=== PATIENT | female | born 1965 | race Caucasian/White ===

== ENCOUNTER 2017-12-27 13:33 | Day surgery (SDC) | payer BC ==
[2017-12-27] MEDS ORDERED: PROPOFOL 10 MG/ML VIAL IV ONE (13:34)
[2017-12-27] MEDS ORDERED: LIDOCAINE 2% MDV (20MG/ML) 20ML VIAL IV ONE (13:34)
--- NOTE | 2018-01-02 10:01 | Operative Note ---
DATE OF SURGERY: OPERATION: ESOPHAGOGASTRODUODENOSCOPY with biopsy. PREOPERATIVE DIAGNOSIS: Non-cardiac chest pain. POSTOPERATIVE DIAGNOSIS: GE junction erosion. PROCEDURE: After informed consent was obtained from the patient, she was placed in the left lateral decubitus position in the endoscopy suite, sedated and monitored by the department of anesthesia. A well-lubricated [id number] gastroscope was placed in the posterior oropharynx and under direct visualization passed to the proximal esophagus. The endoscope was advanced through the proximal, mid, and distal esophagus. The GE junction demonstrated erosion. The remainder of the esophagus, GE junction, gastric body, antrum, pylorus, duodenal bulb and sweep were unremarkable. J-turn views of the proximal stomach were unremarkable. The endoscope was straightened. The GE junction erosion was biopsied to rule out Trevizo's. The endoscope removed from the patient with no new findings noted. RECOMMENDATIONS: I would discontinue the Zantac and increase Protonix to 40 mg twice daily. If her symptoms persist, I would suggest a 48-hour Vergara pH evaluation while still on therapy. As always, thank you for allowing me to participate in the healthcare of your patients. CC: Antonio Bueno, DO [facility]
== END 2017-12-27 14:38 | disposition home or self-care (01) ==
LOC: HOP 13:33
PROVIDERS: ATTEND Internal Medicine Gastroenterology
DX: R07.89 Other chest pain (principal); K22.70 Barrett's esophagus without dysplasia; G25.81 Restless legs syndrome